=== PATIENT | male | born 1970 | race Caucasian/White ===

== ENCOUNTER 2017-03-10 11:43 | Inpatient (IN) | payer SELFPAY ==
[~2017-03-10] VITALS: Ht 172.7 cm; Wt 65.0 kg
[2017-03-10] VITALS (8 sets, daily range): BP systolic 98–123; BP diastolic 55–81; PULSE 98–128; RESP 16–21; TEMP 97.6–100.7; O2SAT 93–100
[2017-03-10] MEDS ORDERED: SODIUM CHLOR 0.9% 1000 ML INJ 1,000 ML IV ONE (12:00)
[2017-03-10] MEDS ORDERED: ACETAMINOPHEN 325 MG TAB PO ONE (12:00)
--- NOTE | 2017-03-10 12:07 | PD ---
HPI Chief Complaint: Cardiac Complaint Time Seen by Provider: 11:56 Travel History International Travel<30 days: No Contact w/Intl Traveler<30days: No Traveled to known affect area: No History of Present Illness HPI 46-year-old male patient presents via EMS with complaint of chest pain, agitation, nausea and hypothermia after snorting an unknown substance. Patient purchased a substance from his known dealer and thought he was getting meth, however he states that he has had meth in the past and never had this response that it must have been something else. Upon arrival of EMS the patient was very confused and thought he was Captthai Perez, however after receiving 2mg Ativan IV, 4mg Zofran and 1L NS bolus in route the patient is more calm and rational upon arrival. After taking the end and substance the patient's temperature increased rapidly and substantially to 104F but after the fluid and round the patient's temperature was 100.7F upon arrival to the emergency department. The patient states his only major medical history is lung cancer. PFS Past Medical History Medical History: Unable to Obtain Past Surgical History Surgical History: Unable to Obtain Social History Alcohol Use: Yes Tobacco Use: Yes Substance Use: Yes Allergies-Medications (Allergen,Severity, Reaction): Coded Allergies: No Known Allergies (Unverified , 03/10/17) Reported Meds & Prescriptions Reported Meds & Active Scripts Active No Active Prescriptions or Reported Medications Review of Systems ROS Limitations: Clinical Condition, Intoxication, Altered Mental Status Except as stated in HPI: all other systems reviewed are Neg Physical Exam Exam Limitations: Clinical Condition, Intoxication, Altered Mental Status Narrative GENERAL: Well-nourished well-developed 45-year-old male that appears anxious SKIN: Focused skin assessment hot/dry/flushed. HEAD: Atraumatic. Normocephalic. EYES: Pupils dilated and slightly reactive to light. Pupils equal and round. No scleral icterus. No injection or drainage. ENT: No nasal bleeding or discharge. Mucous membranes white and dry. NECK: Trachea midline. No JVD. CARDIOVASCULAR: Regular rate and rhythm. No murmur appreciated. RESPIRATORY: No accessory muscle use. Clear to auscultation. Breath sounds course and equal bilaterally. GASTROINTESTINAL: Abdomen soft, non-tender, nondistended. Hepatic and splenic margins not palpable. MUSCULOSKELETAL: No obvious deformities. No clubbing. No cyanosis. No edema. NEUROLOGICAL: Awake and alert. No obvious cranial nerve deficits. Motor grossly within normal limits. Normal speech. PSYCHIATRIC: Anxious and agitated mood and affect. Data Data Last Documented VS Vital Signs Date Time Temp Pulse Resp B/P (MAP) Pulse Ox O2 Delivery O2 Flow Rate FiO2 03/10/17 13:00 100.0 118 16 111/74 (86) 98 Room Air Orders Orders Electrocardiogram (03/10/17 11:53) Complete Blood Count With Diff (03/10/17 11:53) Comprehensive Metabolic Panel (03/10/17 11:53) Magnesium (Mg) (03/10/17 11:53) Troponin I (03/10/17 11:53) Chest, Single Ap (03/10/17 11:53) Ecg Monitoring (03/10/17 11:53) Bilateral Bp Monitoring (03/10/17 11:53) Iv Access Insert/Monitor (03/10/17 11:53) Oximetry (03/10/17 11:53) Acetaminophen (Tylenol) (03/10/17 12:00) Sodium Chlor 0.9% 1000 Ml Inj (Ns 1000 M (03/10/17 12:00) Urinalysis - C+S If Indicated (03/10/17 12:07) Drug Screen, Random Urine (03/10/17 12:07) Magnesium Sulfate 1 Gm Premix (Magnesium (03/10/17 13:15) Sodium Chlor 0.9% 1000 Ml Inj (Ns 1000 M (03/10/17 14:30) Admit Order (Ed Use Only) (03/10/17 14:25) Labs Laboratory Tests Test 03/10/17 12:00 White Blood Count 4.0 TH/MM3 Red Blood Count 4.24 MIL/MM3 Hemoglobin 13.0 GM/DL Hematocrit 38.4 % Mean Corpuscular Volume 90.7 FL Mean Corpuscular Hemoglobin 30.7 PG Mean Corpuscular Hemoglobin Concent 33.8 % Red Cell Distribution Width 13.5 % Platelet Count 215 TH/MM3 Mean Platelet Volume 6.7 FL Neutrophils (%) (Auto) 93.5 % Lymphocytes (%) (Auto) 5.0 % Monocytes (%) (Auto) 0.9 % Eosinophils (%) (Auto) 0.2 % Basophils (%) (Auto) 0.4 % Neutrophils # (Auto) 3.8 TH/MM3 Lymphocytes # (Auto) 0.2 TH/MM3 Monocytes # (Auto) 0.0 TH/MM3 Eosinophils # (Auto) 0.0 TH/MM3 Basophils # (Auto) 0.0 TH/MM3 CBC Comment DIFF FINAL Differential Comment Blood Urea Nitrogen 14 MG/DL Creatinine 0.99 MG/DL Random Glucose 66 MG/DL Total Protein 6.1 GM/DL Albumin 2.3 GM/DL Calcium Level 7.5 MG/DL Magnesium Level 1.2 MG/DL Alkaline Phosphatase 246 U/L Aspartate Amino Transf (AST/SGOT) 90 U/L Alanine Aminotransferase (ALT/SGPT) 304 U/L Total Bilirubin 4.2 MG/DL Sodium Level 133 MEQ/L Potassium Level 3.5 MEQ/L Chloride Level 101 MEQ/L Carbon Dioxide Level 17.2 MEQ/L Anion Gap 15 MEQ/L Estimat Glomerular Filtration Rate 81 ML/MIN Troponin I LESS THAN 0.02 NG/ML MDM Medical Decision Making Medical Screen Exam Complete: Yes Emergency Medical Condition: Yes Medical Record Reviewed: Yes Interpretation(s) Febrile, tachycardic Differential Diagnosis Differential diagnoses include but are not limited to ACS, drug abuse, drug ingestion, intoxication, sepsis, ICH, gastroenteritis Narrative Course Patient was placed on monitor, IV in place, EKG obtained, blood work drawn for lab. CBC, CMP, magnesium, troponin, chest x-ray, EKG ordered and pending. Laboratory Tests Test 03/10/17 12:00 White Blood Count 4.0 TH/MM3 Red Blood Count 4.24 MIL/MM3 Hemoglobin 13.0 GM/DL Hematocrit 38.4 % Mean Corpuscular Volume 90.7 FL Mean Corpuscular Hemoglobin 30.7 PG Mean Corpuscular Hemoglobin Concent 33.8 % Red Cell Distribution Width 13.5 % Platelet Count 215 TH/MM3 Mean Platelet Volume 6.7 FL Neutrophils (%) (Auto) 93.5 % Lymphocytes (%) (Auto) 5.0 % Monocytes (%) (Auto) 0.9 % Eosinophils (%) (Auto) 0.2 % Basophils (%) (Auto) 0.4 % Neutrophils # (Auto) 3.8 TH/MM3 Lymphocytes # (Auto) 0.2 TH/MM3 Monocytes # (Auto) 0.0 TH/MM3 Eosinophils # (Auto) 0.0 TH/MM3 Basophils # (Auto) 0.0 TH/MM3 CBC Comment DIFF FINAL Differential Comment Blood Urea Nitrogen 14 MG/DL Creatinine 0.99 MG/DL Random Glucose 66 MG/DL Total Protein 6.1 GM/DL Albumin 2.3 GM/DL Calcium Level 7.5 MG/DL Magnesium Level 1.2 MG/DL Alkaline Phosphatase 246 U/L Aspartate Amino Transf (AST/SGOT) 90 U/L Alanine Aminotransferase (ALT/SGPT) 304 U/L Total Bilirubin 4.2 MG/DL Sodium Level 133 MEQ/L Potassium Level 3.5 MEQ/L Chloride Level 101 MEQ/L Carbon Dioxide Level 17.2 MEQ/L Anion Gap 15 MEQ/L Estimat Glomerular Filtration Rate 81 ML/MIN Troponin I LESS THAN 0.02 NG/ML Patient's chest x-ray was negative for any acute findings; no masses found despite patient stating his only major medical history is lung cancer. Patient received 1 L normal saline bolus in route by EMS and 1 L normal saline bolus in the ED which will address the hyponatremia at this time. 2 g IV magnesium sulfate ordered to address decreased magnesium. EKG shows sinus tachycardia with heart rate 128. Patient will be admitted to hospital for observation. Diagnosis Primary Impression: Drug abuse Additional Impressions: Nausea Chest pain Qualified Codes: R07.9 - Chest pain, unspecified Tachycardia Admitting Information Admitting Physician Requests: Observation Scripts No Active Prescriptions or Reported Youngs Maria Esther Sibley Mar 10, 2017 12:07
--- NOTE | 2017-03-10 12:23 | RADRPT ---
EXAM DATE/TIME: 03/10/2017 11:59 [facility] COMPARISON: No previous studies available for comparison. INDICATIONS : Chest Pain MEDICAL HISTORY : Carcinoma, lung. SURGICAL HISTORY : None. ENCOUNTER: Initial ACUITY: 1 day PAIN SCORE: 6/10 LOCATION: Bilateral chest FINDINGS: A single view of the chest demonstrates the lungs to be symmetrically aerated without evidence of mas s, infiltrate or effusion. The cardiomediastinal contours are unremarkable. Osseous structures are intact. CONCLUSION: No acute disease. Saray Mendez MD on March 10, 2017 at 12:21 Board Certified Radiologist. This report was verified electronically.
[2017-03-10 12:28] LABS: AUTOMATED NEUTROPHIL # 3.8 TH/MM3 (1.8-7.7); BASOPHIL % 0.4 % (0.0-2.0); EOSINOPHIL % 0.2 % (0.0-4.0); HEMATOCRIT 38.4 % (39.0-51.0); HEMO FLAGS DIFF FINAL; LYMPHOCYTE # 0.2 TH/MM3 (1.0-4.8); MEAN CELL VOLUME 90.7 FL (80.0-100.0); MEAN CORPUSCULAR HEMOGLOBIN 30.7 PG (27.0-34.0); MEAN CORPUSCULAR HGB CONC 33.8 % (32.0-36.0); MONO % 0.9 % (0.0-8.0); NEUT % 93.5 % (16.0-70.0); PLATELET COUNT 215 TH/MM3 (150-450); RED BLOOD COUNT 4.24 MIL/MM3 (4.50-5.90); RED CELL DISTRIBUTION WIDTH 13.5 % (11.6-17.2)
[2017-03-10 12:41] LABS: ALT (GPT) 304 U/L (12-78); ANION GAP 15 MEQ/L (5-15); AST (GOT) 90 U/L (15-37); BICARBONATE 17.2 MEQ/L (21.0-32.0); BLOOD UREA NITROGEN 14 MG/DL (7-18); CHLORIDE 101 MEQ/L (98-107); GLOMERULAR FILTRATION RATE 81 ML/MIN (>89); MAGNESIUM 1.2 MG/DL (1.5-2.5); POTASSIUM 3.5 MEQ/L (3.5-5.1); SODIUM (NA) 133 MEQ/L (136-145)
[2017-03-10 12:45] LABS: ALKALINE PHOSPHATASE 246 U/L (45-117); TOTAL BILIRUBIN ADULT 4.2 MG/DL (0.2-1.0)
[2017-03-10] MEDS: MAGNESIUM SULFATE 1 GM PREMIX 100 ML IV SCH ×2 (13:41→14:57)
[2017-03-10] MEDS ORDERED: SODIUM CHLOR 0.9% 1000 ML INJ 1,000 ML IV SCH (14:30)
[2017-03-10] MEDS: SODIUM CHLOR 0.9% 1000 ML INJ 1,000 ML IV SCH ×2 (14:42→20:16)
[2017-03-10] MEDS ORDERED: NALOXONE HCL 0.4 MG/ML AMP IV PUSH PRN (14:45)
[2017-03-10] MEDS ORDERED: ACETAMINOPHEN 325 MG TAB PO PRN (14:45)
[2017-03-10] MEDS ORDERED: MAGNESIUM HYDROXIDE SUSP 30 ML CUP PO PRN (14:45)
[2017-03-10] MEDS ORDERED: PROCHLORPERAZINE 25 MG SUPP RECTAL PRN (14:45)
[2017-03-10] MEDS ORDERED: BISACODYL 10 MG SUPP RECTAL PRN (14:45)
[2017-03-10] MEDS ORDERED: DEXTROSE 50% IN WATER 50 ML VIAL(D50) IV PUSH PRN (14:45)
[2017-03-10] MEDS ORDERED: SODIUM CHLORIDE 0.9% FLUSH 10 ML FLUSH IV FLUSH PRN ×2 (14:45)
[2017-03-10] MEDS ORDERED: SENNOSIDES 8.6 MG TAB PO PRN (14:45)
[2017-03-10] MEDS ORDERED: MORPHINE SULFATE 4 MG/ML INJ IV PUSH PRN ×2 (14:45)
[2017-03-10] MEDS ORDERED: GLUCAGON 1 MG/ML VIAL OTHER PRN (14:45)
[2017-03-10] MEDS ORDERED: traMADol HCL 50 MG TAB PO PRN (14:45)
[2017-03-10] MEDS ORDERED: HALOPERIDOL 1 MG TAB PO PRN (14:45)
[2017-03-10] MEDS ORDERED: LORazepam 0.5 MG TAB PO PRN (14:45)
[2017-03-10] MEDS ORDERED: ONDANSETRON HCL 4 MG/2 ML VIAL IVP PRN (14:45)
[2017-03-10] MEDS ORDERED: HALOPERIDOL LACTATE 5 MG/ML AMP IM PRN (14:45)
[2017-03-10] MEDS ORDERED: LACTULOSE SYRUP 20 GM/30 ML CUP PO PRN (14:45)
--- NOTE | 2017-03-10 15:00 | HHI.HP ---
[facility] No Primary Care Physician Admission Diagnosis tachycardia, drug abuse Diagnoses: (1) Altered mental status Diagnosis: Principal (2) Nausea Diagnosis: Secondary (3) Chest pain Diagnosis: Secondary (4) Drug abuse Diagnosis: Principal (5) Tachycardia Diagnosis: Principal Chief Complaint: Cardiac complaint and altered mental status Travel History International Travel<30 Days: No Contact w/Intl Traveler <30 Da: No Traveled to Known Affected Are: No History of Present Illness 46-year-old male patient presents via EMS with complaint of chest pain, agitation, nausea and hyperthermia after snorting an unknown substance. Patient purchased a substance from his known dealer and thought he was getting meth, however he states that he has had meth in the past and never had this response that it must have been something else. Upon arrival of EMS the patient was very confused and thought he was Captain Kris Perez, however after receiving 2mg Ativan IV, 4mg Zofran and 1L NS bolus in route the patient is more calm and rational upon arrival. After taking the unknown substance the patient's temperature increased rapidly and substantially to 104F but after the fluid resuscitation the patient's temperature was 100.7F upon arrival to the emergency department. The patient states his only major medical history is lung cancer. Unsure if this is accurate or not?? Nothing seen on chest x-ray Patient remains quite altered will be placed in observation will get urine drug screens continue on aggressive fluid rehydration trend troponins and get an echo Review of Systems ROS Limitations: Altered Mental Status Constitutional: COMPLAINS OF: Diaphoretic episodes, Fever, DENIES: Fatigue, Weight gain, Weight loss, Chills, Dizziness, Change in appetite Endocrine: DENIES: Heat/cold intolerance, Polydipsia, Polyuria Eyes: DENIES: Blurred vision, Diplopia, Eye inflammation Ears, nose, mouth, throat: DENIES: Tinnitus, Hearing loss Respiratory: DENIES: Apneas, Cough, Wheezing, Hemoptysis Cardiovascular: COMPLAINS OF: Chest pain, DENIES: Palpitations, Syncope, Dyspnea on Exertion, PND, Lower Extremity Edema Gastrointestinal: DENIES: Abdominal pain, Black stools, Bloody stools, Constipation, Diarrhea Integumentary: COMPLAINS OF: Rash (multiple tattoos) Hematologic/lymphatic: DENIES: Bruising, Lymphadenopathy Immunologic/allergic: DENIES: Eczema, Urticaria Psychiatric: COMPLAINS OF: Confusion, Hallucinations, Agitation, Delusions Past Family Social History Past Medical History Unknown patient unable to tell much Possibly history of methamphetamine abuse Some questionable lung cancer if this is accurate but not seen on chest x-ray Past Surgical History Unknown Reported Medications Unknown Allergies: Coded Allergies: No Known Allergies (Unverified , 03/10/17) Active Ordered Medications Current Medications Acetaminophen (Tylenol) 650 mg ONCE ONCE PO Last administered on 03/10/17 12: 09; Start 03/10/17 at 12:00; Stop 03/10/17 at 12:01; Status DC Sodium Chloride 1,000 ml @ 999 mls/hr BOLUS ONCE IV Last administered on 03/10 12:08; Start 03/10/17 at 12:00; Stop 03/10/17 at 13:00; Status DC Magnesium Sulfate/ Dextrose 100 ml @ 100 mls/hr Q1H IV Last administered on 13:41; Start 03/10/17 at 13:15; Stop 03/10/17 at 15:14 Sodium Chloride 1,000 ml @ 200 mls/hr Q5H IV ; Start 03/10/17 at 14:30 Insulin Aspart (NovoLOG SUPPLEMENTAL SCALE) 1 ACHS SLIDING SCALE SQ ; Start at 17:00 Dextrose (D50w (Vial) Inj) 50 ml UNSCH PRN IV PUSH HYPOGLYCEMIA-SEE COMMENTS; Start 03/10/17 at 14:45 Glucagon (Glucagon Inj) 1 mg UNSCH PRN OTHER HYPOGLYCEMIA-SEE COMMENTS; Start 03/10/17 at 14:45 Sodium Chloride 1,000 ml @ 200 mls/hr Q5H IV ; Start 03/10/17 at 14:42; Status UNV Sodium Chloride (NS Flush) 2 ml UNSCH PRN IV FLUSH FLUSH AFTER USING IV ACCESS ; Start 03/10/17 at 14:45 Sodium Chloride (NS Flush) 2 ml BID IV FLUSH ; Start 03/10/17 at 21:00 Acetaminophen (Tylenol) 650 mg Q4H PRN PO TEMP > 100.4; Start 03/10/17 at 14:45 ; Status UNV Ondansetron HCl (Zofran Inj) 4 mg Q6H PRN IVP NAUSEA OR VOMITING; Start at 14:45; Status UNV Prochlorperazine (Compazine Supp) 25 mg Q12H PRN ID NAUSEA OR VOMITING; Start 03/10/17 at 14:45; Status UNV Acetaminophen (Tylenol) 650 mg Q6H PRN PO PAIN SCALE 1 TO 2; Start 03/10/17 at 14:45; Status UNV Morphine Sulfate (Morphine Inj) 2 mg Q3H PRN IV PUSH Pain 3-5; if unable to take PO; Start 03/10/17 at 14:45; Status UNV Morphine Sulfate (Morphine Inj) 4 mg Q3H PRN IV PUSH Pain 6-10;if unable to take PO; Start 03/10/17 at 14:45; Status UNV Tramadol HCl (Ultram) 50 mg Q4H PRN PO PAIN SCALE 3 TO 5; Start 03/10/17 at 14: 45; Status UNV Tramadol HCl (Ultram) 100 mg Q4H PRN PO PAIN SCALE 6 TO 10; Start 03/10/17 at 14:45; Status UNV Naloxone HCl (Narcan Inj) 0.4 mg UNSCH PRN IV PUSH SEE LABEL COMMENTS; Start 03/10/17 at 14:45; Status UNV Senna/Docusate Sodium (Serina-Colace) 1 tab BID PO ; Start 03/10/17 at 21:00; Status UNV Magnesium Hydroxide (Milk Of Magnesia Liq) 30 ml Q12H PRN PO MILD - MODERATE CONSTIPATION; Start 03/10/17 at 14:45; Status UNV Sennosides (Senokot) 17.2 mg Q12H PRN PO MODERATE - SEVERE CONSTIPATION; Start 03/10/17 at 14:45; Status UNV Bisacodyl (Dulcolax Supp) 10 mg DAILY PRN RECTAL SEVERE CONSITIPATION; Start 03/10/17 at 14:45; Status UNV Lactulose (Lactulose Liq) 30 ml DAILY PRN PO SEVERE CONSITIPATION; Start at 14:45; Status UNV Sodium Chloride (NS Flush) 2 ml UNSCH PRN IV FLUSH FLUSH AFTER USING IV ACCESS ; Start 03/10/17 at 14:45; Status UNV Sodium Chloride (NS Flush) 2 ml BID IV FLUSH ; Start 03/10/17 at 21:00; Status UNV Haloperidol (Haldol) 1 mg Q8H PRN PO AGITATION; Start 03/10/17 at 14:45; Status UNV Haloperidol Lactate (Haldol Inj) 1 mg Q8H PRN IM AGITATION; Start 03/10/17 at 14:45; Status UNV Lorazepam (Ativan) 0.5 mg Q8H PRN PO ANXIETY; Start 03/10/17 at 14:45; Status UNV Family History Unknown Social History Probable tobacco alcohol and unknown illicit drug use including methamphetamine Patient is to altered for accurate history Physical Exam Vital Signs Vital Signs Date Time Temp Pulse Resp B/P (MAP) Pulse Ox O2 Delivery O2 Flow Rate FiO2 03/10/17 14:00 114 16 100/66 (77) 100 Room Air 03/10/17 13:00 100.0 118 16 111/74 (86) 98 Room Air 03/10/17 11:54 97 Room Air 03/10/17 11:54 130 17 97 Room Air 03/10/17 11:49 100.7 128 21 123/81 (95) 100 Physical Exam GENERAL: This is a well-nourished, well-developed patient, having altered mentation not answering questions appropriately SKIN: No rashes, ecchymoses or lesions. Cool and dry. Multiple tattoos skin is dry HEAD: Atraumatic. Normocephalic. No temporal or scalp tenderness. EYES: Pupils equal round and reactive. Extraocular motions intact. No scleral icterus. No injection or drainage. ENT: Nose without bleeding, purulent drainage or septal hematoma. Throat without erythema, tonsillar hypertrophy or exudate. Uvula midline. Airway patent. Mucous membranes are dry tongue is midline NECK: Trachea midline. No JVD or lymphadenopathy. Supple, nontender, no meningeal signs. CARDIOVASCULAR: Regular rate and rhythm without murmurs, gallops, or rubs. Tachycardia S1-S2 no S3 or S4 RESPIRATORY: Clear to auscultation. Breath sounds equal bilaterally. No wheezes , rales, or rhonchi. GASTROINTESTINAL: Abdomen soft, non-tender, nondistended. No hepato-splenomegaly , or palpable masses. No guarding. MUSCULOSKELETAL: Extremities without clubbing, cyanosis, or edema. No joint tenderness, effusion, or edema noted. No calf tenderness. Negative Homans sign bilaterally. NEUROLOGICAL: Awake and alert. Cranial nerves II through XII intact. Motor and sensory grossly within normal limits. 4 out of 5 muscle strength in all muscle groups. abNormal speech. Insight and judgment is poor Mood and behavior is inappropriate Laboratory Laboratory Tests Test 03/10/17 12:00 White Blood Count 4.0 Red Blood Count 4.24 Hemoglobin 13.0 Hematocrit 38.4 Mean Corpuscular Volume 90.7 Mean Corpuscular Hemoglobin 30.7 Mean Corpuscular Hemoglobin Concent 33.8 Red Cell Distribution Width 13.5 Platelet Count 215 Mean Platelet Volume 6.7 Neutrophils (%) (Auto) 93.5 Lymphocytes (%) (Auto) 5.0 Monocytes (%) (Auto) 0.9 Eosinophils (%) (Auto) 0.2 Basophils (%) (Auto) 0.4 Neutrophils # (Auto) 3.8 Lymphocytes # (Auto) 0.2 Monocytes # (Auto) 0.0 Eosinophils # (Auto) 0.0 Basophils # (Auto) 0.0 CBC Comment DIFF FINAL Differential Comment Blood Urea Nitrogen 14 Creatinine 0.99 Random Glucose 66 Total Protein 6.1 Albumin 2.3 Calcium Level 7.5 Magnesium Level 1.2 Alkaline Phosphatase 246 Aspartate Amino Transf (AST/SGOT) 90 Alanine Aminotransferase (ALT/SGPT) 304 Total Bilirubin 4.2 Sodium Level 133 Potassium Level 3.5 Chloride Level 101 Carbon Dioxide Level 17.2 Anion Gap 15 Estimat Glomerular Filtration Rate 81 Troponin I LESS THAN 0.02 Result Diagram: 03/10/17 1200 03/10/17 1200 Caprini VTE Risk Assessment Caprini VTE Risk Assessment: Mod/High Risk (score >= 2) Caprini Risk Assessment Model Point Value = 1 Point Value = 2 Point Value = 3 Point Value = 5 Age 41-60 Minor surgery BMI > 25 kg/m2 Swollen legs Varicose veins or History of unexplained or recurrent spontaneous Oral contraceptives or hormone replacement Sepsis (< 1 month) Serious lung disease, including pneumonia (< 1 month) Abnormal pulmonary function Acute myocardial infarction Congestive heart failure (< 1 month) History of inflammatory bowel disease Medical patient at bed rest Age 61-74 Arthroscopic surgery Major open surgery (> 45 min) Laparoscopic surgery (> 45 min) Malignancy Confined to bed (> 72 hours) Immobilizing plaster cast Central venous access Age >= 75 History of VTE Family history of VTE Factor V Leiden Prothrombin [id number] Lupus anticoagulant Anticardiolipin antibodies Elevated serum homocysteine Heparin-induced thrombocytopenia Other congenital or acquired thrombophilia Stroke (< 1 month) Elective arthroplasty Hip, pelvis, or leg fracture Acute spinal cord injury (< 1 month) Prophylaxis Regimen Total Risk Factor Score Risk Level Prophylaxis Regimen 0-1 Low Early ambulation 2 Moderate Order ONE of the following: *Sequential Compression Device (SCD) *Heparin 5000 units SQ BID 3-4 Higher Order ONE of the following medications: *Heparin 5000 units SQ TID *Enoxaparin/Lovenox 40 mg SQ daily (WT < 150 kg, CrCl > 30 mL/min) *Enoxaparin/Lovenox 30 mg SQ daily (WT < 150 kg, CrCl > 10-29 mL/min) *Enoxaparin/Lovenox 30 mg SQ BID (WT < 150 kg, CrCl > 30 mL/min) AND/OR *Sequential Compression Device (SCD) 5 or more Highest Order ONE of the following medications: *Heparin 5000 units SQ TID (Preferred with Epidurals) *Enoxaparin/Lovenox 40 mg SQ daily (WT < 150 kg, CrCl > 30 mL/min) *Enoxaparin/Lovenox 30 mg SQ daily (WT < 150 kg, CrCl > 10-29 mL/min) *Enoxaparin/Lovenox 30 mg SQ BID (WT < 150 kg, CrCl > 30 mL/min) AND *Sequential Compression Device (SCD) Assessment and Plan Problem List: (1) Altered mental status ICD Code: R41.82 - Altered mental status, unspecified (2) Nausea ICD Code: R11.0 - Nausea Status: Acute (3) Chest pain ICD Code: R07.9 - Chest pain, unspecified Status: Acute (4) Drug abuse ICD Code: F19.10 - Other psychoactive substance abuse, uncomplicated Status: Acute (5) Tachycardia ICD Code: R00.0 - Tachycardia, unspecified Status: Acute Assessment and Plan Altered mental status due to unknown drug substance will monitor him. Continue on aggressive fluid rehydration. May need psychiatry in the future once he is able to answer questions Haldol and Ativan as needed Tachycardia continue on fluid rehydration Fever secondary to this drug he snorted unknown continue on Tylenol as needed Elevated LFTs suspect hepatitis B or C Hyponatremia continue with fluid rehydration Hypo-magnesium will replace his magnesium Possible history of IV drug abuse Known history of snorting methamphetamine We'll get an echocardiogram. Will get troponins and cardiac enzymes continue on Protonix and SCDs and BRANDON romero ASK case management to eval and treat Get physical therapy and occupational therapy to eval and treat tomorrow We'll get a CAT scan of his head stat Code Status Full code Discussed Condition With Discussed with patient and RN and ER. Problem Qualifiers (1) Chest pain: Qualified Codes: R07.9 - Chest pain, unspecified Silvano Pagan DO Mar 10, 2017 15:00
--- NOTE | 2017-03-10 16:44 | RADRPT ---
EXAM DATE/TIME: 03/10/2017 15:18 [facility] COMPARISON: No previous studies available for comparison. INDICATIONS : Altered mental status. RADIATION DOSE: 47.23 CTDIvol (mGy) MEDICAL HISTORY : Carcinoma, lung. SURGICAL HISTORY : None. ENCOUNTER: Initial ACUITY: 1 day PAIN SCALE: Non-responsive LOCATION: cranial TECHNIQUE: Multiple contiguous axial images were obtained of the head. Using automated exposure control and adj ustment of the mA and/or kV according to patient size, radiation dose was kept as low as reasonably a chievable to obtain optimal diagnostic quality images. DICOM format image data is available electro nically for review and comparison. FINDINGS: There is some mild motion artifact in the mid convexity images. The study is still diagnostic. CEREBRUM: The ventricles are normal for age. No evidence of midline shift, mass lesion, hemorrhage or acute in farction. No extra-axial fluid collections are seen. POSTERIOR FOSSA: The cerebellum and brainstem are intact. The 4th ventricle is midline. The cerebellopontine angle i s unremarkable. EXTRACRANIAL: The visualized portion of the orbits is intact. SKULL: The calvaria is intact. No evidence of skull fracture. CONCLUSION: No acute findings in the brain. Yoel Abel MD on March 10, 2017 at 16:36 Board Certified Radiologist. This report was verified electronically.
[2017-03-10] MEDS: INSULIN ASPART SUPPLEMENTAL SCALE SQ SCH ×2 (17:00→20:19)
[2017-03-10] MEDS: SODIUM CHLORIDE 0.9% FLUSH 10 ML FLUSH IV FLUSH SCH (20:16)
[2017-03-10] MEDS: DOCUSATE SODIUM 50 MG/SENNA 8.6 MG TAB PO SCH (20:17)
[2017-03-10] MEDS: traMADol HCL 50 MG TAB PO PRN (20:17)
[2017-03-10] MEDS ORDERED: SODIUM CHLORIDE 0.9% FLUSH 10 ML FLUSH IV FLUSH SCH (21:00)
[2017-03-10 22:52] LABS: BACTERIA, URINE RARE /hpf; BLOOD, URINE NEG (NEG); COMMENT (UR) CULT NOT INDICATED; CULTURE IF INDICATED CULT NOT INDICATED; GLUCOSE,URINE NEG (NEG); KETONE, URINE NEG (NEG); MUCUS URINE FEW /lpf (OCC); NITRITE,URINE NEG (NEG); URINE COLOR YELLOW (YELLW/STRAW)
[2017-03-11] VITALS (11 sets, daily range): BP systolic 83–120; BP diastolic 53–75; PULSE 59–101; RESP 16–20; TEMP 97.4–99.2; O2SAT 92–98
[2017-03-11] MEDS: SODIUM CHLOR 0.9% 1000 ML INJ 1,000 ML IV SCH ×3 (00:42→09:57)
[2017-03-11 00:56] LABS: CREATINE KINASE 168 U/L (39-308)
[2017-03-11 00:57] LABS: ALCOHOL LESS THAN 3 MG/DL (0-5)
[2017-03-11] MEDS: ACETAMINOPHEN 325 MG TAB PO PRN (04:47)
[2017-03-11 06:08] LABS: BASOPHIL % 0.1 % (0.0-2.0); EOSINOPHIL % 0.1 % (0.0-4.0); HEMATOCRIT 34.4 % (39.0-51.0); LYMPH % 6.7 % (9.0-44.0); LYMPHOCYTE # 1.5 TH/MM3 (1.0-4.8); MEAN CELL VOLUME 90.7 FL (80.0-100.0); MEAN CORPUSCULAR HEMOGLOBIN 30.6 PG (27.0-34.0); MEAN CORPUSCULAR HGB CONC 33.7 % (32.0-36.0); MONO % 10.3 % (0.0-8.0); NEUT % 82.8 % (16.0-70.0); PLATELET COUNT 205 TH/MM3 (150-450); RED BLOOD COUNT 3.79 MIL/MM3 (4.50-5.90); RED CELL DISTRIBUTION WIDTH 13.6 % (11.6-17.2)
[2017-03-11 06:15] LABS: HEMO FLAGS AUTO DIFF
[2017-03-11 06:26] LABS: ALKALINE PHOSPHATASE 126 U/L (45-117); ALT (GPT) 242 U/L (12-78); ANION GAP 6 MEQ/L (5-15); AST (GOT) 80 U/L (15-37); BICARBONATE 22.6 MEQ/L (21.0-32.0); BLOOD UREA NITROGEN 15 MG/DL (7-18); CALCIUM-PROTEIN CORRECTED 8.1 MG/DL (8.5-10.1); CHLORIDE 108 MEQ/L (98-107); CREATINE KINASE 129 U/L (39-308); FREE T4 1.39 NG/DL (0.76-1.46); GLOMERULAR FILTRATION RATE 109 ML/MIN (>89); MAGNESIUM 1.8 MG/DL (1.5-2.5); POTASSIUM 4.5 MEQ/L (3.5-5.1); SODIUM (NA) 137 MEQ/L (136-145); TOTAL BILIRUBIN ADULT 2.8 MG/DL (0.2-1.0)
[2017-03-11] MEDS: BENZONATATE 100 MG CAP PO PRN ×2 (06:27→11:28)
[2017-03-11] MEDS: INSULIN ASPART SUPPLEMENTAL SCALE SQ SCH ×4 (08:00→20:17)
[2017-03-11] MEDS: SODIUM CHLORIDE 0.9% FLUSH 10 ML FLUSH IV FLUSH SCH ×2 (08:03→20:17)
[2017-03-11] MEDS: DOCUSATE SODIUM 50 MG/SENNA 8.6 MG TAB PO SCH (08:03)
[2017-03-11 08:08] LABS: INDIRECT BILIRUBIN 0.7 MG/DL (0.0-0.8)
[2017-03-11 08:22] LABS: BANDS 38 % (0-6); NEUTROPHIL # MANUAL DIFF 20.7 TH/MM3 (1.8-7.7); POLYS (SEG NEUTROPHILS) 52 % (16-70); WBC DIFF SAMPLE 100
[2017-03-11 08:25] LABS: PLATELET ESTIMATE SMEAR NORMAL (NORMAL); PLATELET MORPHOLOGY NORMAL (NORMAL); SCAN/DIFF FINAL DIFF MANUAL
--- NOTE | 2017-03-11 09:47 | ECHRPT ---
Indication: cp CONCLUSIONS The left ventricular systolic function is moderately reduced with an estimated ejection fraction in the range of 40-45%. Normal left ventricular size. There is global left ventricular dysfunction. [id number] mitral valve regurgitation. There is mild tricuspid valve regurgitation. The pulmonary valve is not well visualized. BP: / HR: Rhythm: MEASUREMENTS (Male / Female) Normal Values Technical Quality:Good 2D ECHO LV Diastolic Diameter PLAX 4.0 cm 4.2 - 5.9 / 3.9 - 5.3 cm LV Systolic Diameter PLAX 3.3 cm IVS Diastolic Thickness 1.3 cm 0.6 - 1.0 / 0.6 - 0.9 cm LVPW Diastolic Thickness 1.0 cm 0.6 - 1.0 / 0.6 - 0.9 cm LV Relative Wall Thickness 0.6 RV Internal Dim ED PLAX 2.5 cm M-MODE Aortic Root Diameter MM 3.0 cm LA Systolic Diameter MM 2.6 cm LA Ao Ratio MM 0.9 AV Cusp Separation MM 2.3 cm DOPPLER LV E' Lateral Velocity 14.2 cm/s LV E' Septal Velocity 13.2 cm/s FINDINGS LEFT VENTRICLE The left ventricular systolic function is moderately reduced with an estimated ejection fraction in the range of 40-45%. There is global left ventricular dysfunction. Normal left ventricular size. RIGHT VENTRICLE Normal right ventricular size and systolic function. LEFT ATRIUM The left atrial size is normal. RIGHT ATRIUM The right atrial size is normal. ATRIAL SEPTUM Normal atrial septal thickness without atrial level shunting by limited color doppler interrogation. AORTA The aortic root and proximal ascending aorta are normal in size on limited imaging. MITRAL VALVE Structurally normal mitral valve. [id number] mitral valve regurgitation. AORTIC VALVE Trileaflet aortic valve. No aortic valve stenosis or regurgitation. TRICUSPID VALVE Structurally normal tricuspid valve. There is mild tricuspid valve regurgitation. PULMONARY VALVE The pulmonary valve is not well visualized. VESSELS The inferior vena cava is normal in size. PERICARDIUM No pericardial effusion. Gerry Adhikari MD (Electronically Signed) Final Date:11 March 2017 09:47
[2017-03-11] MEDS: traMADol HCL 50 MG TAB PO PRN (09:54)
[2017-03-11] MEDS ORDERED: INFLUENZA VIRUS VACCINE (QUADRIVALENT) 0.5 ML SYR IM ONE (10:00)
[2017-03-11] MEDS ORDERED: PNEUMOCOCCAL POLYVALENT INJ 25 MCG/0.5 ML SYR IM ONE (10:00)
[2017-03-11] MEDS ORDERED: THIAMINE HCL 100 MG TAB PO ONE (10:45)
[2017-03-11] MEDS ORDERED: SODIUM CHLORID 0.9% 500 ML INJ 500 ML IV ONE (11:45)
[2017-03-11] MEDS ORDERED: methylPREDNISolone SOD SUCC 125 MG/2 ML VIAL IV PUSH ONE (12:00)
[2017-03-11] MEDS ORDERED: KETOROLAC TROMETHAMINE 30 MG/ML (IVP) VIAL IV PUSH PRN (12:00)
--- NOTE | 2017-03-11 12:30 | HHI.PR ---
Subjective Remarks Follow-up for altered mental status and toxic ingestion. The patient is much more awake and alert today. He complains of back pain and right middle finger pain. He states he was in the ocean last week and was playing with some shells , and sustained a cut on his right index finger and his lip. He also reported the waves in the ocean twisted his back last week. He has been having a cough. He does smoke. He was told the past he had a "hole in his lung like cancer", but states he does not want any workup for that. He is concerned about the pain and swelling in his right middle finger, states he's been having purulent drainage. He states due to the pain in his back, finger, and lip, he took something yesterday that he thought was a meth, but hasn't had a reaction to meth like this in the past. He does admit to polysubstance abuse and has taken morphine and "D" pills and has injected morphine, but has been more than a month since injecting. He feels like his legs have been tingling for the last week. He reports an episode of incontinence in the ED yesterday, otherwise no incontinence. He states he's been ambulating to the restroom with no difficulties or unsteadiness. Objective Vitals Vital Signs Date Time Temp Pulse Resp B/P (MAP) Pulse Ox O2 Delivery O2 Flow Rate FiO2 03/11/17 07:45 97.4 85 18 92/55 (67) 95 03/11/17 07:38 80 03/11/17 07:15 93 21 03/11/17 05:47 18 03/11/17 03:12 99.2 101 16 106/66 (79) 92 03/10/17 23:20 97.8 98 18 100/61 (74) 93 03/10/17 21:17 16 03/10/17 20:55 21 03/10/17 20:25 97.6 107 19 98/55 (69) 95 03/10/17 16:29 98.2 115 20 112/64 (80) 96 03/10/17 15:27 03/10/17 14:58 99.6 03/10/17 14:00 114 16 100/66 (77) 100 Room Air 03/10/17 13:00 100.0 118 16 111/74 (86) 98 Room Air I/O 03/10/17 03/10/17 03/10/17 03/11/17 03/11/17 03/11/17 07:00 15:00 23:00 07:00 15:00 23:00 Intake Total 1100 ml 460 ml Balance 1100 ml 460 ml Intake Oral 360 ml IV Total 1100 ml 100 ml # Voids 2 Result Diagram: 03/11/17 0527 03/11/17 0527 Imaging Last Impressions Chest X-Ray 03/10/17 1153 Signed Impressions: Service Date/Time: Friday, March 10, 2017 11:59 - CONCLUSION: No acute disease. Saray Mendez MD Head CT 03/10/17 0000 Signed Impressions: Service Date/Time: Friday, March 10, 2017 15:18 - CONCLUSION: No acute findings in the brain. Yoel Abel MD Objective Remarks GENERAL: Well-developed well-nourished. In no acute distress. SKIN: Warm and dry. Right middle finger with swelling and a central ulceration with some scant purulent drainage. Lower lip with small healing scab. HEENT: Normocephalic. Pupils equal and round. Mucous membranes pink and moist. CARDIOVASCULAR: Regular rate and rhythm. No murmur appreciated. RESPIRATORY: No accessory muscle use. Coarse wheezing in all lung [place]. GASTROINTESTINAL: Abdomen soft, non-tender, nondistended. Bowel sounds x4. MUSCULOSKELETAL: Previous scarring across the palm of the right hand. Painful ROM in the right middle finger with tenderness on the palmar aspect of the hand. Lumbar paravertebral muscle spasm. NEUROLOGICAL: Awake and alert. No focal neurological deficits. Moves upper and lower extremities spontaneously. Normal speech. PSYCHIATRIC: Appropriate mood and affect; insight and judgment fair. A/P Problem List: (1) Altered mental status ICD Code: R41.82 - Altered mental status, unspecified Status: Resolved (2) Drug abuse ICD Code: F19.10 - Other psychoactive substance abuse, uncomplicated Status: Acute (3) Tachycardia ICD Code: R00.0 - Tachycardia, unspecified Status: Resolved Assessment and Plan 46-year-old male who was admitted secondary to altered mental status, tachycardia, and hyperthermia after taking some kind of drug he thought was meth Toxic encephalopathy secondary to amphetamine ingestion/tachycardia/hyperthermia : Improved at this time. Mental status is better. No further tachycardia or hyperthermia. The patient does have probable reactive leukocytosis 23K today. UDS positive for amphetamines. Head CT with no acute findings. -Continue supportive care Right middle finger cellulitis: Cut his finger on a sea shell last week and has swelling and a wound with some purulent drainage. -Check hand x-ray -Check wound culture -Antibiotics with IV Ancef, IV Levaquin, oral doxycycline -Consider hand surgery evaluation SIRS/Sepsis: Cannot rule out sepsis with SIRS due to toxic ingestion as above. -Blood cultures pending -Consult ID Probable acute COPD exacerbation: Long history of tobacco abuse. Coarse wheezing on exam. Chest x-ray with no acute process. -Scheduled nebs -IV Solu-Medrol 1 and continue oral prednisone Lumbar pain: Seems more secondary to muscle spasm on exam. -Check lumbar x-ray -IV Toradol as needed for pain Mild systolic CHF: Echocardiogram performed which showed EF 40-45 % with moderate reduction in systolic function. -Caution with IVF -Consider starting on beta son if BP allows Transaminitis: Elevation of bilirubin, AST, ALT, alkaline phosphatase; improving some today. Secondary to toxic ingestion? -Check liver ultrasound and hepatitis panel -Follow up LFTs Polysubstance abuse: Tobacco, amphetamines, opiates. -Cessation counseling -Caution with controlled medications DVT prophylaxis: Timothy Bennett Mar 11, 2017 12:30
[2017-03-11] MEDS: DOXYCYCLINE HYCLATE 100 MG TAB PO SCH ×2 (12:52→20:17)
[2017-03-11] MEDS: PANTOPRAZOLE SOD 20 MG DELAYED RELEASE TAB PO SCH (12:52)
[2017-03-11] MEDS: LEVOFLOXACIN 750 MG PREMIX INJ 150 ML IV SCH ×2 (12:55→15:43)
[2017-03-11] MEDS: RESP: ALBUTEROL 2.5 MG/IPRATROPIUM 0.5 MG NEB (SCH) NEB ×3 (13:09→20:54)
--- NOTE | 2017-03-11 15:20 | RADRPT ---
EXAM DATE/TIME: 03/11/2017 14:43 [facility] COMPARISON: No previous studies available for comparison. INDICATIONS : Lower back pain. Patient twisted back in ocean. MEDICAL HISTORY : Carcinoma, lung. SURGICAL HISTORY : None. ENCOUNTER: Initial ACUITY: 3 days PAIN SCORE: 5/10 LOCATION: Bilateral lower back. FINDINGS: There are five non-rib bearing vertebral bodies. The vertebral bodies are in normal alignment withou t evidence of subluxation or scoliosis. The disc spaces are maintained. The posterior elements are intact without evidence of spondylolysis. The pedicles are intact. Bony mineralization is normal. Bony neural foramina are patent. No fracture is identified. CONCLUSION: 1. No acute fracture or subluxation. 2. No significant bony neural foraminal narrowing. Issac Slaughter MD on March 11, 2017 at 15:17 Board Certified Radiologist. This report was verified electronically.
--- NOTE | 2017-03-11 15:22 | RADRPT ---
EXAM DATE/TIME: 03/11/2017 14:47 [facility] COMPARISON: No previous studies available for comparison. INDICATIONS : Right hand pain. MEDICAL HISTORY : Carcinoma, lung. SURGICAL HISTORY : Hand surgery. ENCOUNTER: Initial ACUITY: 3 days PAIN SCORE: 5/10 LOCATION: Right hand. FINDINGS: Three view examination of the right hand demonstrates no soft tissue swelling, dislocation, or fractu re. Multiple surgical clips in the palmar metacarpal region. The carpal bones appear intact. The i nterphalangeal and metacarpophalangeal joints are intact. Bony mineralization is normal. CONCLUSION: 1. No acute fracture, significant focal bony lesion, or dislocation. Issac Slaughter MD on March 11, 2017 at 15:19 Board Certified Radiologist. This report was verified electronically.
[2017-03-11 16:07] LABS: HEMOGLOBIN A1a 1.1 %; HEMOGLOBIN A1b 1.5 %; HEMOGLOBIN Ao 86.4 %; HEMOGLOBIN LA1C 1.8 %; HEMOGLOBIN P3 3.5 %
[2017-03-11] MEDS ORDERED: LORazepam 2 MG TAB PO PRN (16:45)
[2017-03-11] MEDS ORDERED: FLUMAZENIL 0.5 MG/5 ML VIAL IV PUSH PRN (16:45)
[2017-03-11] MEDS ORDERED: cloNIDine HCL 0.1 MG TAB PO PRN (16:45)
[2017-03-11] MEDS ORDERED: LORazepam 2 MG/ML VIAL IV PUSH PRN ×2 (16:45)
[2017-03-11] MEDS: LORazepam 1 MG TAB PO PRN (17:09)
--- NOTE | 2017-03-11 18:12 | RADRPT ---
EXAM DATE/TIME: 03/11/2017 16:35 [facility] COMPARISON: No previous studies available for comparison. INDICATIONS : Increased lab values. MEDICAL HISTORY : Hypertension. Myocardial infarction. Substance abuse, methamphetamine. . Altered mental status. Milad g cancer. PTSD. SURGICAL HISTORY : Hand and knee surgery. ENCOUNTER: Initial ACUITY: 1 day PAIN SCORE: 4/10 LOCATION: Abdomen. MEASUREMENTS: LIVER: 17.0 cm length COMMON DUCT: 5 mm RIGHT KIDNEY: 11.1 x 5.4 x 4.8 cm SPLEEN: 12.7 cm length FINDINGS: LIVER: Normal echotexture without focal lesion or ductal dilatation. COMMON DUCT: No intraluminal mass or stone visualized. GALLBLADDER: The gallbladder is free of stones. Gallbladder wall is thickened at 5 mm. There is small amount of fl uid seen around the gallbladder and liver margin. PANCREAS: The visualized portions are within normal limits. RIGHT KIDNEY: No hydronephrosis, stone or mass. SPLEEN: No focal lesion. The spleen is upper limits of normal for size. CONCLUSION: Thickening of the gallbladder wall with fluid around the gallbladder and liver margin. No gallstones were seen. This could be secondary to underlying hepatic disease. A more distal stone cannot be exclu ded, however the common bile duct is not dilated. Hernán Dias MD on March 11, 2017 at 18:08 Board Certified Radiologist. This report was verified electronically.
--- NOTE | 2017-03-11 19:35 | EKG ---
Date Performed: 03/10/2017 Time Performed: 18:17:52 PTAGE: 46 years EKG: SINUS TACHYCARDIA SEPTAL MYOCARDIAL INFARCTION ABNORMAL ECG PREVIOUS TRACING : 03/10/2017 11.58 Compared to prior tracing no significant change DOCTOR: Salvatore Michael Interpretating Date/Time 03/11/2017 19:32:20
--- NOTE | 2017-03-11 19:42 | EKG ---
Date Performed: 03/10/2017 Time Performed: 11:58:20 PTAGE: 46 years EKG: SINUS TACHYCARDIA SEPTAL MYOCARDIAL INFARCTION ABNORMAL ECG NO PREVIOUS TRACING DOCTOR: Salvatore Michael Interpretating Date/Time 03/11/2017 19:37:58
[2017-03-11] MEDS: predniSONE 20 MG TAB PO SCH (20:17)
[2017-03-12] VITALS (11 sets, daily range): BP systolic 109–136; BP diastolic 64–86; PULSE 54–73; RESP 16–20; TEMP 96.7–98.4; O2SAT 93–97
[2017-03-12] MEDS: MULTIVITAMINS/MINERALS THERAPEUTIC TAB PO SCH (07:39)
[2017-03-12] MEDS: THIAMINE HCL 100 MG TAB PO SCH (07:40)
[2017-03-12] MEDS: FOLIC ACID 1 MG TAB PO SCH (07:40)
[2017-03-12] MEDS: DOXYCYCLINE HYCLATE 100 MG TAB PO SCH ×2 (07:40→21:23)
[2017-03-12] MEDS: predniSONE 20 MG TAB PO SCH (07:40)
[2017-03-12] MEDS: PANTOPRAZOLE SOD 20 MG DELAYED RELEASE TAB PO SCH (07:40)
[2017-03-12] MEDS: SODIUM CHLORIDE 0.9% FLUSH 10 ML FLUSH IV FLUSH SCH ×2 (07:43→21:26)
[2017-03-12] MEDS: RESP: ALBUTEROL 2.5 MG/IPRATROPIUM 0.5 MG NEB (SCH) NEB ×4 (07:44→22:11)
[2017-03-12] MEDS: ACETAMINOPHEN 325 MG TAB PO PRN ×3 (07:46→21:46)
[2017-03-12] MEDS: INSULIN ASPART SUPPLEMENTAL SCALE SQ SCH ×4 (09:07→21:00)
--- NOTE | 2017-03-12 10:40 | PD.ID.CON ---
History of Present Illness Service ID Consult Requested By DURAN Matos Reason for Consult Evaluation and Mment of Right middle finger cellulitis. Primary Care Physician No Primary Care Physician Diagnoses: History of Present Illness Most of the history was by review of medical records. is a 46-year-old male patient presents via EMS with complaints of chest pain, agitation, nausea and hyperthermia after snorting an unknown substance. Upon arrival of EMS the patient was very confused and thought he was [employer] Kris Perez, however after receiving 2mg Ativan IV, 4mg Zofran and 1L NS bolus in route the patient is more calm and rational upon arrival. After taking the unknown substance the patient's temperature increased rapidly and substantially to 104F but after the fluid resuscitation the patient's temperature was 100.7F upon arrival to the emergency department. Hospital course: Patient had a swelling, ulcer and erythema of right middle finger on admission and was started on IV antibiotics. He had a CXR most recent one with infiltrates ? aspiration PNA related. Patient received steroids for ? COPD exacerbation after arrival and his WBC increased. Normal WBC on admission. He denies any CP, Shortness of breath. He is currently being treated by [facility] protocol for alcohol withdrawal. ID consulted for evaluation and Mment of right middle finger cellulitis, leucocytosis and aspiration PNA. Review of Systems ROS Limitations: Uncooperative, Poor Historian Past Family Social History Allergies: Coded Allergies: No Known Allergies (Unverified , 03/10/17) Past Medical History h/o methamphetamine abuse Injury to right hand with right middle finger tendon issues. Past Surgical History ? right hand surgery has a scar. Physical Exam Vital Signs Vital Signs Date Time Temp Pulse Resp B/P (MAP) Pulse Ox O2 Delivery O2 Flow Rate FiO2 03/12/17 07:45 97 21 03/12/17 07:19 98.0 60 18 134/85 (101) 97 03/12/17 07:13 54 03/12/17 05:00 21 03/12/17 03:55 96.7 71 18 129/81 (97) 95 03/11/17 23:48 97.8 59 18 105/68 (80) 96 03/11/17 20:55 98 21 03/11/17 20:48 97.9 79 19 120/75 (90) 96 03/11/17 17:07 80 16 109/65 (80) 95 03/11/17 15:29 97.7 80 20 103/64 (77) 95 03/11/17 14:17 88 97/56 (70) 03/11/17 14:05 97.5 82 20 83/53 (63) 98 Physical Exam GENERAL: This is a well-nourished, well-developed patient, in no apparent distress. SKIN: No rashes, ecchymoses or lesions. Cool and dry. HEAD: Atraumatic. Normocephalic. No temporal or scalp tenderness. EYES: Pupils equal round and reactive. Extraocular motions intact. No scleral icterus. No injection or drainage. ENT: Nose without bleeding, purulent drainage or septal hematoma. Throat without erythema, tonsillar hypertrophy or exudate. Uvula midline. Airway patent. NECK: Trachea midline. No JVD or lymphadenopathy. Supple, nontender, no meningeal signs. CARDIOVASCULAR: Regular rate and rhythm without murmurs, gallops, or rubs. RESPIRATORY: Clear to auscultation. Breath sounds equal bilaterally. No wheezes , rales, or rhonchi. GASTROINTESTINAL: Abdomen soft, non-tender, nondistended. No hepato-splenomegaly , or palpable masses. No guarding. MUSCULOSKELETAL: Extremities without clubbing, cyanosis, or edema. No joint tenderness, effusion, or edema noted. No calf tenderness. Negative Homans sign bilaterally. NEUROLOGICAL: Awake and alert. Cranial nerves II through XII intact. Motor and sensory grossly within normal limits. Five out of 5 muscle strength in all muscle groups. Normal speech. Psych cooperative IV line sites with no e.o infection Laboratory Date/Time Source Procedure Growth Status 03/11/17 05:27 Blood Peripheral Aerobic Blood Culture Pending Received 03/11/17 05:27 Blood Peripheral Anaerobic Blood Culture Pending Received 03/11/17 15:54 Wound Finger Gram Stain - Final Resulted 03/11/17 15:54 Wound Finger Wound Culture Pending Resulted Result Diagram: 03/11/1752603/11/17526 Imaging Last Impressions Chest X-Ray 03/12/17 0000 Signed Impressions: Service Date/Time: Sunday, March 12, 2017 12:29 - CONCLUSION: Slight interstitial prominence could be interstitial infiltrate. Abhilash Rogers MD Lumbar Spine X-Ray 03/11/17 0000 Signed Impressions: Service Date/Time: Saturday, March 11, 2017 14:43 - CONCLUSION: 1. No acute fracture or subluxation. 2. No significant bony neural foraminal narrowing. Issac Slaughter MD Liver Ultrasound 03/11/17 Signed Impressions: Service Date/Time: Saturday, March 11, 2017 16:35 - CONCLUSION: Thickening of the gallbladder wall with fluid around the gallbladder and liver margin. No gallstones were seen. This could be secondary to underlying hepatic disease. A more distal stone cannot be excluded, however the common bile duct is not dilated. Hernán Dias MD Hand X-Ray 03/11/17 Signed Impressions: Service Date/Time: Saturday, March 11, 2017 14:47 - CONCLUSION: 1. No acute fracture, significant focal bony lesion, or dislocation. Issac Slaughter MD Head CT 03/10/17 0000 Signed Impressions: Service Date/Time: Friday, March 10, 2017 15:18 - CONCLUSION: No acute findings in the brain. Yoel Abel MD Assessment and Plan Assessment and Plan Right hand cellulitis Leucocytosis: steroids, infection Aspiration Pneumonia. abnormal LFTs: alcohol, sepsis Alcoholism Recs: DC Cefazolin Continue Doxy and Levaquin Follow cultures Follow clinically If continues to do well and cultures back(susceptible to Doxy) ok to discharge home on oral doxy. If resistant to doxy please call me back. If any new organisms please call me back. rena Matos and RN. Joslyn Delatorre MD Mar 12, 2017 10:40
[2017-03-12 11:02] LABS: AUTOMATED NEUTROPHIL # 19.6 TH/MM3 (1.8-7.7); BASOPHIL % 0.1 % (0.0-2.0); HEMATOCRIT 36.1 % (39.0-51.0); HEMO FLAGS DIFF FINAL; LYMPH % 4.1 % (9.0-44.0); LYMPHOCYTE # 0.9 TH/MM3 (1.0-4.8); MEAN CELL VOLUME 91.7 FL (80.0-100.0); MEAN CORPUSCULAR HEMOGLOBIN 30.7 PG (27.0-34.0); MEAN CORPUSCULAR HGB CONC 33.5 % (32.0-36.0); MONO % 4.7 % (0.0-8.0); NEUT % 91.1 % (16.0-70.0); PLATELET COUNT 236 TH/MM3 (150-450); RED BLOOD COUNT 3.94 MIL/MM3 (4.50-5.90); RED CELL DISTRIBUTION WIDTH 13.8 % (11.6-17.2); WHITE BLOOD COUNT 21.5 TH/MM3 (4.0-11.0)
[2017-03-12 11:42] LABS: BICARBONATE 23.6 MEQ/L (21.0-32.0); INDIRECT BILIRUBIN 0.2 MG/DL (0.0-0.8); POTASSIUM 4.1 MEQ/L (3.5-5.1); TOTAL BILIRUBIN ADULT 1.5 MG/DL (0.2-1.0)
[2017-03-12] MEDS: LEVOFLOXACIN 750 MG PREMIX INJ 150 ML IV SCH (12:50)
--- NOTE | 2017-03-12 12:53 | RADRPT ---
EXAM DATE/TIME: 03/12/2017 12:29 [facility] COMPARISON: CHEST SINGLE AP, March 10, 2017, 11:59. INDICATIONS : Fever, short of breath MEDICAL HISTORY : Hypertension. Myocardial infarction. Carcinoma, lung. PTSD, AMS, substance abuse SURGICAL HISTORY : hand and knee surgery ENCOUNTER: Subsequent ACUITY: 2 days PAIN SCORE: Non-responsive. LOCATION: Bilateral chest FINDINGS: A single view of the chest demonstrates the lungs to be symmetrically aerated without evidence of mas s, infiltrate or effusion. Slight interstitial prominence. The cardiomediastinal contours are unremar kable. Osseous structures are intact. CONCLUSION: Slight interstitial prominence could be interstitial infiltrate. Abhilash Rogers MD on March 12, 2017 at 12:50 Board Certified Radiologist. This report was verified electronically.
--- NOTE | 2017-03-12 13:49 | HHI.PR ---
Subjective Remarks Follow-up for finger infection and COPD exacerbation. The patient reports his right middle finger feels much improved today. He states he had been having red streaking up his arm last week until he popped what sounds like an abscess on that finger. He states he had been having fever and chills last week, none since admission. He is not able to fully flex the fingers on his right hand because of previous tendon injury. He reports his breathing is getting better with breathing treatments. Objective Vitals Vital Signs Date Time Temp Pulse Resp B/P (MAP) Pulse Ox O2 Delivery O2 Flow Rate FiO2 03/12/17 13:20 63 03/12/17 11:10 98.1 73 16 136/86 (103) 93 03/12/17 07:45 97 21 03/12/17 07:19 98.0 60 18 134/85 (101) 97 03/12/17 07:13 54 03/12/17 05:00 21 03/12/17 03:55 96.7 71 18 129/81 (97) 95 03/11/17 23:48 97.8 59 18 105/68 (80) 96 03/11/17 20:55 98 21 03/11/17 20:48 97.9 79 19 120/75 (90) 96 03/11/17 17:07 80 16 109/65 (80) 95 03/11/17 15:29 97.7 80 20 103/64 (77) 95 03/11/17 14:17 88 97/56 (70) 03/11/17 14:05 97.5 82 20 83/53 (63) 98 I/O 03/11/17 03/11/17 03/11/17 03/12/17 03/12/17 03/12/17 07:00 15:00 23:00 07:00 15:00 23:00 Intake Total 420 ml Output Total 360 ml Balance 60 ml Intake Oral 420 ml Output Urine Total 360 ml # Voids 6 Result Diagram: 03/12/17 1040 03/12/17 1040 Imaging Last Impressions Lumbar Spine X-Ray 03/11/17 0000 Signed Impressions: Service Date/Time: Saturday, March 11, 2017 14:43 - CONCLUSION: 1. No acute fracture or subluxation. 2. No significant bony neural foraminal narrowing. Issac Slaughter MD Liver Ultrasound 03/11/17 0000 Signed Impressions: Service Date/Time: Saturday, March 11, 2017 16:35 - CONCLUSION: Thickening of the gallbladder wall with fluid around the gallbladder and liver margin. No gallstones were seen. This could be secondary to underlying hepatic disease. A more distal stone cannot be excluded, however the common bile duct is not dilated. Hernán Dias MD Hand X-Ray 03/11/17 0000 Signed Impressions: Service Date/Time: Saturday, March 11, 2017 14:47 - CONCLUSION: 1. No acute fracture, significant focal bony lesion, or dislocation. Issac Slaughter MD Chest X-Ray 03/10/17 1153 Signed Impressions: Service Date/Time: Friday, March 10, 2017 11:59 - CONCLUSION: No acute disease. Saray Mendez MD Head CT 03/10/17 0000 Signed Impressions: Service Date/Time: Friday, March 10, 2017 15:18 - CONCLUSION: No acute findings in the brain. Yoel Abel MD Objective Remarks GENERAL: Well-developed well-nourished. In no acute distress. SKIN: Warm and dry. Right middle finger with improving swelling and a small central ulceration with some scant purulent drainage. Lower lip with small healing scab. HEENT: Normocephalic. Pupils equal and round. Mucous membranes pink and moist. CARDIOVASCULAR: Regular rate and rhythm. No murmur appreciated. RESPIRATORY: No accessory muscle use. Clear to auscultation bilaterally. No wheezing. GASTROINTESTINAL: Abdomen soft, non-tender, nondistended. Bowel sounds x4. MUSCULOSKELETAL: Previous scarring across the palm of the right hand. Improving ROM of the fingers on the right hand. NEUROLOGICAL: Awake and alert. No focal neurological deficits. Moves upper and lower extremities spontaneously. Normal speech. PSYCHIATRIC: Appropriate mood and affect; insight and judgment fair. A/P Problem List: (1) Altered mental status ICD Code: R41.82 - Altered mental status, unspecified Status: Resolved (2) Drug abuse ICD Code: F19.10 - Other psychoactive substance abuse, uncomplicated Status: Acute (3) Tachycardia ICD Code: R00.0 - Tachycardia, unspecified Status: Resolved Assessment and Plan 46-year-old male who was admitted secondary to altered mental status, tachycardia, and hyperthermia after taking some kind of drug he thought was meth Toxic encephalopathy secondary to amphetamine ingestion/tachycardia/hyperthermia : Improved at this time. Mental status is better. No further tachycardia or hyperthermia. The patient does have probable reactive leukocytosis 23K today. UDS positive for amphetamines. Head CT with no acute findings. -Continue supportive care Right middle finger cellulitis: Cut his finger on a sea shell last week and has swelling and a wound with some purulent drainage. Hand x-ray with no acute process. -Wound culture preliminarily growing MRSA -Initially given antibiotics with IV Ancef, IV Levaquin, oral doxycycline for saltwater coverage and ID consulted Sepsis: Source finger cellulitis as above. Initially with tachycardia, hyperthermia. Leukocytosis and bandemia still significantly elevated, but are trending down now. -Blood cultures with NGTD -ID on board Probable acute COPD exacerbation: Long history of tobacco abuse. Coarse wheezing on exam. Chest x-ray with no acute process. Satting well on room air. Improving. -Scheduled nebs -Received IV Solu-Medrol 1 and oral prednisone 2 and now no further wheezing, DC steroids with infection as above Leukocytosis with bandemia: WBC 4.0 on admission which increased to 23.0. WBC is trending down at 21.5 today. Possibly secondary to amphetamine use, steroids as above for COPD, finger infection as above, possible underlying pneumonia. -Repeated chest x-ray 03/12 which showed slight interstitial prominence which could indicate interstitial infiltrate. -Discussed with ID, recommended continuing on Levaquin and doxycycline -Follow up CBC Lumbar pain: Seems more secondary to muscle spasm on exam. Lumbar x-ray unremarkable. No further complaints. -IV Toradol as needed for pain Mild systolic CHF: Echocardiogram performed which showed EF 40-45 % with moderate reduction in systolic function. -Caution with IVF -Consider starting on beta son if BP/HR allows Hepatitis C with transaminitis: Elevation of bilirubin, AST, ALT, alkaline phosphatase; trending down. Liver ultrasound suggestive of hepatic disease. Hepatitis profile shows hepatitis C positive. -Monitor LFTs and recommend outpatient GI follow-up Polysubstance abuse: Tobacco, amphetamines, opiates. -Cessation counseling -Caution with controlled medications DVT prophylaxis: SCDs Discharge Planning Toxic encephalopathy improved. Cellulitis is improving. Follow-up CBC, cultures, and await final antibiotic recommendations. Timothy Matos Mar 12, 2017 13:49
[2017-03-12] MEDS: LORazepam 1 MG TAB PO PRN (18:15)
[2017-03-13 00:04] VITALS: PULSE 58
[2017-03-13] MEDS ORDERED: BENZONATATE 100 MG CAP PO PRN (00:45)
[2017-03-13] MEDS ORDERED: CALCIUM CARBONATE 500 MG CHEWABLE TAB CHEW PRN (00:45)
[2017-03-13 04:09] VITALS: PULSE 59
[2017-03-13 04:52] VITALS: BP 130/77; PULSE 60; RESP 18; TEMP 98.2; O2SAT 94
[2017-03-13] MEDS: ACETAMINOPHEN 325 MG TAB PO PRN (06:18)
[2017-03-13 07:25] LABS: AUTOMATED NEUTROPHIL # 10.4 TH/MM3 (1.8-7.7); BASOPHIL % 0.2 % (0.0-2.0); EOSINOPHIL % 0.1 % (0.0-4.0); HEMATOCRIT 35.8 % (39.0-51.0); HEMO FLAGS DIFF FINAL; LYMPH % 17.7 % (9.0-44.0); LYMPHOCYTE # 2.4 TH/MM3 (1.0-4.8); MEAN CELL VOLUME 90.3 FL (80.0-100.0); MEAN CORPUSCULAR HEMOGLOBIN 31.2 PG (27.0-34.0); MEAN CORPUSCULAR HGB CONC 34.5 % (32.0-36.0); MONO % 5.4 % (0.0-8.0); NEUT % 76.6 % (16.0-70.0); PLATELET COUNT 285 TH/MM3 (150-450); RED BLOOD COUNT 3.97 MIL/MM3 (4.50-5.90); RED CELL DISTRIBUTION WIDTH 13.6 % (11.6-17.2); WHITE BLOOD COUNT 13.6 TH/MM3 (4.0-11.0)
[2017-03-13 07:34] VITALS: PULSE 65
[2017-03-13] MEDS: MULTIVITAMINS/MINERALS THERAPEUTIC TAB PO SCH (07:38)
[2017-03-13] MEDS: THIAMINE HCL 100 MG TAB PO SCH (07:38)
[2017-03-13] MEDS: DOXYCYCLINE HYCLATE 100 MG TAB PO SCH (07:38)
[2017-03-13] MEDS: PANTOPRAZOLE SOD 20 MG DELAYED RELEASE TAB PO SCH (07:39)
[2017-03-13] MEDS: FOLIC ACID 1 MG TAB PO SCH (07:39)
[2017-03-13] MEDS: INSULIN ASPART SUPPLEMENTAL SCALE SQ SCH (07:40)
[2017-03-13] MEDS: SODIUM CHLORIDE 0.9% FLUSH 10 ML FLUSH IV FLUSH SCH (07:40)
[2017-03-13 07:41] LABS: ALT (GPT) 144 U/L (12-78); ANION GAP 7 MEQ/L (5-15); AST (GOT) 30 U/L (15-37); BICARBONATE 25.9 MEQ/L (21.0-32.0); BLOOD UREA NITROGEN 17 MG/DL (7-18); CHLORIDE 106 MEQ/L (98-107); GLOMERULAR FILTRATION RATE 103 ML/MIN (>89); POTASSIUM 4.2 MEQ/L (3.5-5.1); SODIUM (NA) 139 MEQ/L (136-145)
[2017-03-13 07:46] LABS: ALKALINE PHOSPHATASE 121 U/L (45-117); TOTAL BILIRUBIN ADULT 1.4 MG/DL (0.2-1.0)
[2017-03-13 08:05] VITALS: BP 150/95; PULSE 57; RESP 20; TEMP 98; O2SAT 95
[2017-03-13] MEDS: RESP: ALBUTEROL 2.5 MG/IPRATROPIUM 0.5 MG NEB (SCH) NEB ×2 (08:30→11:15)
--- NOTE | 2017-03-13 11:11 | HHI.PR ---
Subjective Remarks Follow-up for sepsis. The patient reports his finger is much improved. He denies any shortness of breath. Sleeping upon arrival. When asked if he is having fever or chills he states that he is having fever and chills. No fevers reported. He denies any prior history of hepatitis C. Objective Vitals Vital Signs Date Time Temp Pulse Resp B/P (MAP) Pulse Ox O2 Delivery O2 Flow Rate FiO2 03/13/17 08:05 98.0 57 20 150/95 (113) 95 03/13/17 07:34 65 03/13/17 04:52 98.2 60 18 130/77 (94) 94 03/13/17 04:09 59 03/13/17 02:53 Nasal Cannula 2.00 03/13/17 00:04 58 03/12/17 23:58 98.4 66 18 116/72 (87) 94 03/12/17 22:12 95 21 03/12/17 20:45 98.1 73 20 109/64 (79) 97 03/12/17 20:01 55 03/12/17 17:23 97.7 63 16 129/76 (93) 97 03/12/17 13:20 63 03/12/17 11:10 98.1 73 16 136/86 (103) 93 I/O 03/12/17 03/12/17 03/12/17 03/13/17 03/13/17 03/13/17 07:00 15:00 23:00 07:00 15:00 23:00 Intake Total 500 ml 420 ml Output Total 2000 ml Balance -2000 ml 500 ml 420 ml Intake Oral 500 ml 420 ml Output Urine Total 2000 ml # Voids 3 Result Diagram: 03/13/17 0647 03/13/17 0647 Imaging Last Impressions Chest X-Ray 03/12/17 0000 Signed Impressions: Service Date/Time: Sunday, March 12, 2017 12:29 - CONCLUSION: Slight interstitial prominence could be interstitial infiltrate. Abhilash Rogers MD Lumbar Spine X-Ray 03/11/17 0000 Signed Impressions: Service Date/Time: Saturday, March 11, 2017 14:43 - CONCLUSION: 1. No acute fracture or subluxation. 2. No significant bony neural foraminal narrowing. Issac Slaughter MD Liver Ultrasound 03/11/17 Signed Impressions: Service Date/Time: Saturday, March 11, 2017 16:35 - CONCLUSION: Thickening of the gallbladder wall with fluid around the gallbladder and liver margin. No gallstones were seen. This could be secondary to underlying hepatic disease. A more distal stone cannot be excluded, however the common bile duct is not dilated. Hernán Dias MD Hand X-Ray 03/11/17 Signed Impressions: Service Date/Time: Saturday, March 11, 2017 14:47 - CONCLUSION: 1. No acute fracture, significant focal bony lesion, or dislocation. Issac Slaughter MD Head CT 03/10/17 Signed Impressions: Service Date/Time: Friday, March 10, 2017 15:18 - CONCLUSION: No acute findings in the brain. Yoel Abel MD Objective Remarks GENERAL: Well-developed well-nourished. In no acute distress. SKIN: Warm and dry. Right middle finger with no further swelling and a small central scabbing/healing ulceration. Lower lip with small healing scab. HEENT: Normocephalic. Pupils equal and round. Mucous membranes pink and moist. CARDIOVASCULAR: Regular rate and rhythm. No murmur appreciated. RESPIRATORY: No accessory muscle use. Clear to auscultation bilaterally. No wheezing. GASTROINTESTINAL: Abdomen soft, non-tender, nondistended. Bowel sounds x4. MUSCULOSKELETAL: Previous scarring across the palm of the right hand. Improved ROM of the fingers on the right hand. NEUROLOGICAL: Awake and alert. No focal neurological deficits. Moves upper and lower extremities spontaneously. Normal speech. PSYCHIATRIC: Appropriate mood and affect; insight and judgment fair. A/P Problem List: (1) Altered mental status ICD Code: R41.82 - Altered mental status, unspecified Status: Resolved (2) Drug abuse ICD Code: F19.10 - Other psychoactive substance abuse, uncomplicated Status: Acute (3) Tachycardia ICD Code: R00.0 - Tachycardia, unspecified Status: Resolved Assessment and Plan 46-year-old male who was admitted secondary to altered mental status, tachycardia, and hyperthermia after taking some kind of drug he thought was meth Toxic encephalopathy secondary to amphetamine ingestion/tachycardia/hyperthermia : Improved at this time. Mental status is better. No further tachycardia or hyperthermia. UDS positive for amphetamines. Head CT with no acute findings. -Continue supportive care Right middle finger cellulitis: Cut his finger on a sea shell last week and has swelling and a wound with some purulent drainage. Hand x-ray with no acute process. -Wound culture growing MRSA sensitive to doxycycline -ID consulted as below Sepsis: Source finger cellulitis as above. Initially with tachycardia, hyperthermia. Leukocytosis and bandemia still significantly elevated, but are trending down now. -Blood cultures with NGTD -ID on board Probable acute COPD exacerbation: Long history of tobacco abuse. Coarse wheezing on exam. Chest x-ray with no acute process. Satting well on room air. Improved. -Scheduled nebs, continue albuterol as needed -Received IV Solu-Medrol 1 and oral prednisone 2 and now no further wheezing, DC'd steroids with infection as above Leukocytosis with bandemia: WBC 4.0 on admission which increased to 23.0. WBC is trending down to 13.6 today. Possibly secondary to amphetamine use, steroids as above for COPD, finger infection as above, possible underlying pneumonia. Patient clinically improving. -Repeated chest x-ray 03/12 which showed slight interstitial prominence which could indicate interstitial infiltrate. -Discussed with ID, Dr. Delatorre, patient cleared for discharge on 7 more days of oral Levaquin and doxycycline Mild systolic CHF: Echocardiogram performed which showed EF 40-45 % with moderate reduction in systolic function. -Caution with IVF -Consider starting on beta son if BP/HR allows Hepatitis C with transaminitis: Elevation of bilirubin, AST, ALT, alkaline phosphatase; continues to trend down. Liver ultrasound suggestive of hepatic disease. Hepatitis profile shows hepatitis C positive. Patient informed of all findings. -Recommended outpatient PCP and GI follow-up Polysubstance abuse: Tobacco, amphetamines, opiates. -Cessation counseling -Caution with controlled medications DVT prophylaxis: SCDs Discharge Planning Clinically improved and cleared by ID for discharge. Problem Qualifiers (1) Altered mental status: Qualified Codes: R41.0 - Disorientation, unspecified Timothy Matos Mar 13, 2017 11:11
[2017-03-13] MEDS ORDERED: DOXY100T PO (11:13)
[2017-03-13] MEDS ORDERED: ALBUAER3 INH (11:13)
[2017-03-13] MEDS ORDERED: LEVO750T3 PO (11:13)
--- NOTE | 2017-03-13 11:20 | HHI.DS ---
Discharge Summary Admission Date Mar 10, 2017 at 14:29 Discharge Date: Mar 13, 2017 Admitting Diagnosis tachycardia, drug abuse (1) Altered mental status ICD Code: R41.82 - Altered mental status, unspecified Status: Resolved (2) Drug abuse ICD Code: F19.10 - Other psychoactive substance abuse, uncomplicated Status: Acute (3) Tachycardia ICD Code: R00.0 - Tachycardia, unspecified Status: Resolved Procedures None Brief History - From Admission 46-year-old male patient presents via EMS with complaint of chest pain, agitation, nausea and hyperthermia after snorting an unknown substance. Patient purchased a substance from his known dealer and thought he was getting meth, however he states that he has had meth in the past and never had this response that it must have been something else. Upon arrival of EMS the patient was very confused and thought he was [employer], however after receiving 2mg Ativan IV, 4mg Zofran and 1L NS bolus in route the patient is more calm and rational upon arrival. After taking the unknown substance the patient's temperature increased rapidly and substantially to 104F but after the fluid resuscitation the patient's temperature was 100.7F upon arrival to the emergency department. The patient states his only major medical history is lung cancer. Unsure if this is accurate or not?? Nothing seen on chest x-ray Patient remains quite altered will be placed in observation will get urine drug screens continue on aggressive fluid rehydration trend troponins and get an echo CBC/BMP: 03/13/17 0647 03/13/17 0647 Significant Findings Laboratory Tests Test 03/10/17 12:00 03/10/17 16:20 03/10/17 22:37 03/10/17 23:49 Red Blood Count 4.24 MIL/MM3 (4.50-5.90) Hematocrit 38.4 % (39.0-51.0) Mean Platelet Volume 6.7 FL (7.0-11.0) Neutrophils (%) (Auto) 93.5 % (16.0-70.0) Lymphocytes (%) (Auto) 5.0 % (9.0-44.0) Lymphocytes # (Auto) 0.2 TH/MM3 (1.0-4.8) Random Glucose 66 MG/DL (74-106) Total Protein 6.1 GM/DL (6.4-8.2) Albumin 2.3 GM/DL (3.4-5.0) Calcium Level 7.5 MG/DL (8.5-10.1) Magnesium Level 1.2 MG/DL (1.5-2.5) Alkaline Phosphatase 246 U/L (45-117) Aspartate Amino Transf (AST/SGOT) 90 U/L (15-37) Alanine Aminotransferase (ALT/SGPT) 304 U/L (12-78) Total Bilirubin 4.2 MG/DL (0.2-1.0) Sodium Level 133 MEQ/L (136-145) Carbon Dioxide Level 17.2 MEQ/L (21.0-32.0) Estimat Glomerular Filtration Rate 81 ML/MIN (>89) Troponin I LESS THAN 0.02 NG/ML Urine Bacteria RARE /hpf (NONE) Urine Mucus FEW /lpf (OCC) Urine Amphetamines Screen POS (NEG) Lactic Acid Level 2.4 mmol/L (0.4-2.0) Ammonia 38 MCMOL/L (11-32) Vitamin B12 Level 1084 PG/ML (193-986) Test 03/11/17 05:27 03/12/17 10:40 03/13/17 06:47 White Blood Count 23.0 TH/MM3 (4.0-11.0) 21.5 TH/MM3 (4.0-11.0) 13.6 TH/MM3 (4.0-11.0) Red Blood Count 3.79 MIL/MM3 (4.50-5.90) 3.94 MIL/MM3 (4.50-5.90) 3.97 MIL/MM3 (4.50-5.90) Hemoglobin 11.6 GM/DL (13.0-17.0) 12.1 GM/DL (13.0-17.0) 12.4 GM/DL (13.0-17.0) Hematocrit 34.4 % (39.0-51.0) 36.1 % (39.0-51.0) 35.8 % (39.0-51.0) Mean Platelet Volume 6.9 FL (7.0-11.0) Neutrophils (%) (Auto) 82.8 % (16.0-70.0) 91.1 % (16.0-70.0) 76.6 % (16.0-70.0) Lymphocytes (%) (Auto) 6.7 % (9.0-44.0) 4.1 % (9.0-44.0) Monocytes (%) (Auto) 10.3 % (0.0-8.0) Neutrophils # (Auto) 19.0 TH/MM3 (1.8-7.7) 19.6 TH/MM3 (1.8-7.7) 10.4 TH/MM3 (1.8-7.7) Monocytes # (Auto) 2.4 TH/MM3 (0-0.9) 1.0 TH/MM3 (0-0.9) Band Neutrophils % 38 % (0-6) Lymphocytes % 2 % (9-44) Neutrophils # (Manual) 20.7 TH/MM3 (1.8-7.7) Total Protein 5.7 GM/DL (6.4-8.2) 6.1 GM/DL (6.4-8.2) 6.1 GM/DL (6.4-8.2) Albumin 2.1 GM/DL (3.4-5.0) 2.2 GM/DL (3.4-5.0) 2.2 GM/DL (3.4-5.0) Calcium Level 7.3 MG/DL (8.5-10.1) 8.3 MG/DL (8.5-10.1) 8.3 MG/DL (8.5-10.1) Alkaline Phosphatase 126 U/L (45-117) 137 U/L (45-117) 121 U/L (45-117) Aspartate Amino Transf (AST/SGOT) 80 U/L (15-37) 47 U/L (15-37) Alanine Aminotransferase (ALT/SGPT) 242 U/L (12-78) 190 U/L (12-78) 144 U/L (12-78) Total Bilirubin 2.8 MG/DL (0.2-1.0) 1.5 MG/DL (0.2-1.0) 1.4 MG/DL (0.2-1.0) Direct Bilirubin 2.1 MG/DL (0.0-0.2) 1.3 MG/DL (0.0-0.2) Chloride Level 108 MEQ/L (98-107) Protein Corrected Calcium 8.1 MG/DL (8.5-10.1) Thiamine Level 194 nmol/L (70-180) Lymphocytes # (Auto) 0.9 TH/MM3 (1.0-4.8) Random Glucose 207 MG/DL (74-106) Hepatitis C Antibody REACTIVE (NEGATIVE) Imaging Last Impressions Chest X-Ray 03/12/17 Signed Impressions: Service Date/Time: Sunday, March 12, 2017 12:29 - CONCLUSION: Slight interstitial prominence could be interstitial infiltrate. Abhilash Rogers MD Lumbar Spine X-Ray 03/11/17 Signed Impressions: Service Date/Time: Saturday, March 11, 2017 14:43 - CONCLUSION: 1. No acute fracture or subluxation. 2. No significant bony neural foraminal narrowing. Issac Slaughter MD Liver Ultrasound 03/11/17 Signed Impressions: Service Date/Time: Saturday, March 11, 2017 16:35 - CONCLUSION: Thickening of the gallbladder wall with fluid around the gallbladder and liver margin. No gallstones were seen. This could be secondary to underlying hepatic disease. A more distal stone cannot be excluded, however the common bile duct is not dilated. Hernán Dias MD Hand X-Ray 03/11/17 Signed Impressions: Service Date/Time: Saturday, March 11, 2017 14:47 - CONCLUSION: 1. No acute fracture, significant focal bony lesion, or dislocation. Issac Slaughter MD Head CT 03/10/17 Signed Impressions: Service Date/Time: Friday, March 10, 2017 15:18 - CONCLUSION: No acute findings in the brain. oYel Abel MD PE at Discharge GENERAL: Well-developed well-nourished. In no acute distress. SKIN: Warm and dry. Right middle finger with no further swelling and a small central scabbing/healing ulceration. Lower lip with small healing scab. HEENT: Normocephalic. Pupils equal and round. Mucous membranes pink and moist. CARDIOVASCULAR: Regular rate and rhythm. No murmur appreciated. RESPIRATORY: No accessory muscle use. Clear to auscultation bilaterally. No wheezing. GASTROINTESTINAL: Abdomen soft, non-tender, nondistended. Bowel sounds x4. MUSCULOSKELETAL: Previous scarring across the palm of the right hand. Improved ROM of the fingers on the right hand. NEUROLOGICAL: Awake and alert. No focal neurological deficits. Moves upper and lower extremities spontaneously. Normal speech. PSYCHIATRIC: Appropriate mood and affect; insight and judgment fair. Pt update on day of discharge partnership marketing manager to assist with filling prescriptions at discharge. Hospital Course 46-year-old male who was admitted secondary to altered mental status, tachycardia, and hyperthermia after taking some kind of drug he thought was meth Toxic encephalopathy secondary to amphetamine ingestion/tachycardia/hyperthermia : Improved with supportive care over the first 24 hours of admission. No further tachycardia or hyperthermia. UDS positive for amphetamines. Head CT with no acute findings. Right middle finger cellulitis: Cut his finger on a sea shell last week and has swelling and a wound with some purulent drainage. Hand x-ray with no acute process. -Wound culture growing MRSA sensitive to doxycycline, continue 7 date course as below -ID consulted as below Sepsis: Source finger cellulitis as above. Initially with tachycardia, hyperthermia. Leukocytosis and bandemia still significantly elevated, but trended down. -Blood cultures with no growth 48 hours -ID on board and cleared for discharge Probable acute COPD exacerbation: Long history of tobacco abuse. Coarse wheezing on exam. Chest x-ray with no acute process. Satting well on room air. Improved. -Received IV Solu-Medrol 1 and oral prednisone 2 and now no further wheezing, DC'd steroids with infection as above -Received nebs, continue albuterol as needed Leukocytosis with bandemia: WBC 4.0 on admission which increased to 23.0. WBC is trending down to 13.6 today. Possibly secondary to amphetamine use, steroids as above for COPD, finger infection as above, possible underlying pneumonia. Repeated chest x-ray 03/12 which showed slight interstitial prominence which could indicate interstitial infiltrate. Patient clinically improved. -Discussed with ID, Dr. Delatorre, patient cleared for discharge on 7 more days of oral Levaquin and doxycycline Mild systolic CHF: Echocardiogram performed which showed EF 40-45 % with moderate reduction in systolic function. Beta son not started due to heart rate occasionally in the 50s. Hepatitis C with transaminitis: Elevation of bilirubin, AST, ALT, alkaline phosphatase; trended down. Liver ultrasound suggestive of hepatic disease. Hepatitis profile shows hepatitis C positive. Patient informed of all findings. -Recommended outpatient PCP and GI follow-up Pt Condition on Discharge: Stable Discharge Disposition: Discharge Home Discharge Time: > 30 minutes Discharge Instructions DIET: Follow Instructions for: As Tolerated, No Restrictions Activities you can perform: Regular-No Restrictions Follow up Referrals: Gastroenterology - 1 Month PCP Follow-up - 1 Week New Medications: Albuterol 8.5 GM Inh (Proair Hfa 8.5 GM Inh) 90 Mcg/Act Aer 2 PUFF INH Q4-6H PRN for SHORTNESS OF BREATH, #1 INHALER 0 Refills 108 mcg/actuation Levofloxacin (Levofloxacin) 750 Mg Tablet 750 MG PO DAILY for Infection, #7 TAB 0 Refills Doxycycline Hyclate (Doxycycline Hyclate) 100 Mg Tab 100 MG PO BID for Infection, #14 TAB Timothy Matos Mar 13, 2017 11:20
[2017-03-13 11:47] VITALS: BP 148/88; PULSE 55; RESP 20; TEMP 97.8; O2SAT 95
== END 2017-03-13 13:51 | disposition home or self-care (01) | DRG 917 ==
LOC: NEPE 11:43 → NEDA 14:27 → UNDOADMOB 14:28 → NEDA 14:28 → OBSVTOIN 14:29 → INTOOBSV 14:29 → NEPFCDU 15:40 → NEDA 15:40 → OBSVTOIN 03-11 12:30 → UNDODISOB 03-13 13:51
PROVIDERS: ADMIT Internal Medicine; ATTEND Internal Medicine
DX: T43.621A Poisoning by amphetamines, accidental (unintentional), initial encounter (principal); G92 Toxic encephalopathy; A41.9 Sepsis, unspecified organism; J44.1 Chronic obstructive pulmonary disease with (acute) exacerbation; I50.20 Unspecified systolic (congestive) heart failure; F19.10 Other psychoactive substance abuse, uncomplicated; R00.0 Tachycardia, unspecified; L03.011 Cellulitis of right finger; B95.62 Methicillin resistant Staphylococcus aureus infection as the cause of diseases classified elsewhere; B19.20 Unspecified viral hepatitis C without hepatic coma; F17.200 Nicotine dependence, unspecified, uncomplicated; Z23 Encounter for immunization; M62.838 Other muscle spasm; M54.5 Low back pain
CPT/HCPCS: 70450; 71010; 72110; 73130; 76705; 76937; 80048; 80053; 80074; 80076; 80307; 81001; 82140; 82248; 82550; 82600; 82607; 82948; 83036; 83605; 83735; 84100; 84425; 84439; 84443; 84484; 85007; 85025; 85027; 85610; 86403; 86592; 87040; 87070; 87147; 87186; 87205; 90686; 90732; 93005; 93306; 94640; 94664; 96361; 96365; G0378; G8987-GP; G8988-GP; J0690; J1815; J1956; J2405; J2930; J3475; J7030; J7040; J7512; Q2038